=== PATIENT | male | born 1960 | race Caucasian/White ===

== ENCOUNTER 2018-02-19 10:02 | Inpatient (IN) ==
[~2018-02-19 10:02] MED LIST: Vancomycin 1,000 MG, Sodium Chloride IRRigation 1,000 ML IR ONE
[2018-02-19] MEDS ORDERED: CeFAZolin Syr 2,000MG/20 ML 2,000 MG/20 ML SYRINGE IVPB ONE (10:27)
[2018-02-19] MEDS ORDERED: Ringers Solution, Lactated 1,000 ML IVC SCH (10:30)
--- NOTE | 2018-02-19 10:32 | Anesthesia Evaluation PreOp ---
Date of Encounter: 02/19/18 Time of Encounter: 10:35 - Past History Planned Operation: Right iliac stent, poss femoral endarterectomy Alcohol Use: none Drug use: none Medications and Allergies Aspirin [Lo-Dose Aspirin EC] 81 mg PO DAILY 05/30/17 [History] Atorvastatin [Lipitor] 40 mg PO DAILY 05/30/17 [History] Cholecalciferol (Vitamin D3) [Vitamin D3] 1,000 unit PO DAILY 05/30/17 [History] Clopidogrel [Plavix] 75 mg PO DAILY #30 tablet 05/30/17 [Rx] Gabapentin [Neurontin] 300 mg PO BID 05/30/17 [History] Metoprolol XL (24 HR) Succ [Toprol Xl] 25 mg PO DAILY 06/15/17 [History] Cilostazol [Pletal] 100 mg PO BID 07/05/17 [History] HYDROcodone/Acet 5/325 mg [Warren 5-325 mg] 1 tab PO Q4H PRN #25 tablet 07/05/17 [Rx] 3 Allergy/AdvReac Type Severity Reaction Status Date / Time No Known Allergies Allergy Verified 07/05/17 10:33 - Meds/Allergy Pre-op Review Medications Reviewed: Yes Allergies Reviewed: Yes Beta Blockers on Current Med List: No Anesthesia Results - Labs Laboratory Tests 07/06/17 07/06/17 02/18/18 03:30 03:30 11:52 WBC 9.7 Hgb 12.4 L Hct 37.5 Plt Count 145 PT 10.9 INR 1.0 APTT 29.7 Sodium 139 Potassium 4.4 Chloride 103 Carbon Dioxide 27 BUN 9 Creatinine 0.90 Est GFR ( Amer) > 60 Est GFR (Non-Af Amer) > 60 BUN/Creatinine Ratio 10 Glucose 152 H Calculated Osmolality 290 Calcium 8.9 Labs from [facility] ([place], [place]) --18 A1c 5.5 WBC 3.7 Hgb 14.3 Hct 43.6 Plt 150 Na 143 K 5.1 Chloride 106 CO2 30 BUN 11 Cr 0.93 Glucose 102 - Imaging EKG: report reviewed, image reviewed (SINUS RHYTHM BASELINE ARTIFACT COMPLICATES ACCURATE INTERPRETATION) Additional studies: TTE: Impressions: LVEF 60%. Normal LV chamber size, wall thickness and function. Mild left ventricular diastolic dysfunction. Atypical septal motion consistent with bundle branch block. Normal right ventricular structure and function. No significant valvular dysfunction. Anesthesia Exam Last Vital Signs Temp 97.7 F 02/19/18 10:13 Pulse 75 02/19/18 10:13 Resp 18 02/19/18 10:13 BP 130/91 02/19/18 10:13 Pulse Ox 96 02/19/18 10:13 Weight: 61 kg NPO (# of Hours): > 8 hrs - HEENT Pupil (Motor): Pupils equal, EOMI Mallampati: II Teeth: Poor dentition Oral Opening: Greater than 3 - BUSINESS SUPPORT ADMINISTRATOR LOC: Oriented - Cardiac Rhythm: Regular Murmur: None - Pulmonary Breath Sounds: bilateral Clear Respiratory Effort: Symmetrical Anesthesia Assess/Plan ASA Score: 2 Modified [place] Scale for Level of Consciousness: Cooperative, oriented, and tranquil Anesthetic Plan: General Monitoring Plan: Standard Monitors, A-Line Recovery Plan: PACU
[2018-02-19] MEDS ORDERED: Albuterol 2.5 MG/3 ML NEBULIZER ONE (10:35)
[2018-02-19] MEDS ORDERED: Heparin 1,000 UNITS/500 mL 500 ML ONE (11:17)
--- NOTE | 2018-02-19 11:22 | History & Physical Report ---
Date of Encounter: 02/19/18 Time of Encounter: 11:15 24 Hour HP Update - Instructions Instructions: If the History and Physical is less than 30 days old and was completed prior to A.M. admission and or procedure and has NOT been updated on calendar day of procedure please complete this update prior to performing procedure. - Update Patient reports changes in Medical Condition: No Changes in examination, assessment, or condition: No Changes in Medication: No Preop tests/diagnostics Reviewed: Yes Surgery Remains Indicated: Yes Consent for Planned Operative Procedure(s) Verified: Yes - Pre-Operative Checklist Preoperative Checklist Indicated: Yes Prophylactic Antibiotic Ordered: Yes (vancomycin due to risk of MRSA) Home Medications Include Beta Daren: No Beta Daren Taken Today (Day of Surgery): No Beta Daren Taken Yesterday (Day Prior to Surgery): No Is VTE Prophylaxis Indicated?: Yes
[2018-02-19] MEDS ORDERED: Heparin 1,000 UNITS/500 mL 1,000 ML ONE (12:06)
[2018-02-19] MEDS ORDERED: Bupivacaine-MPF 0.25% 10 ML VIAL ONE (12:06)
[2018-02-19] MEDS ORDERED: *HR* FentaNYL (PF) 100 MCG/2 ML VIAL ONE (12:06)
[2018-02-19] MEDS ORDERED: *HR* Propofol 200 MG/20 ML VIAL IVP ONE (12:06)
[2018-02-19] MEDS ORDERED: Lidocaine -MPF 2% 2 ML VIAL ONE (12:06)
[2018-02-19] MEDS ORDERED: *HR* Succinylcholine 200 MG/10 ML VIAL IVP ONE (12:08)
[2018-02-19] MEDS ORDERED: Lidocaine -MPF 4% 5 ML AMPUL ONE (13:50)
[2018-02-19] MEDS ORDERED: Isovue-300 50 ML VIAL IVP ONE (14:01)
[2018-02-19] MEDS ORDERED: Dexamethasone 4 MG/ML VIAL ONE (14:22)
[2018-02-19] MEDS ORDERED: Ondansetron 4 MG/2 ML VIAL ONE (14:22)
[2018-02-19] MEDS ORDERED: *HR* OxyCODONE Immed Rel 5 MG TABLET PO PRN ×2 (14:31→16:33)
[2018-02-19] MEDS ORDERED: MORPHINE SUL Oral CONC 10 MG/0.5 ML ORAL.SYG SL PRN (14:31)
--- NOTE | 2018-02-19 15:59 | Operative Note ---
Date of procedure: 02/19/18 Pre-op diagnosis: Peripheral vascular disease with dsabling claudication Post-op diagnosis: same Procedure: 1. Introduction of catheter into aorta via right common femoral artery. 2. Abdominal Aortogram 3. Percutaneous placement of right common and external iliac artery 7 x 37mm stent. Complications: None Anesthesia: GETA Surgeon: Kang Siu Was there an property management assistant present: No Estimated blood loss (cc): 5 Specimen: None Disposition: PACU Procedure in Detail: Indications: The patient is a 57-year-old male with multiple medical comorbidities who has a history of peripheral vascular disease with disabling claudication.. She underwent a right common iliac artery stent and a femoral to femoral artery bypass. He presented to clinic with progressive bilateral lower stomach claudication. He was found have an right distal common and external iliac artery stenosis. Revascularization was recommended to reduce his symptoms. Operative procedure:The patient was identified in the preoperative area and taken to the operating room. After the induction of general endotracheal anesthesia he was prepped and draped in the normal sterile fashion. Under ultrasound guidance, the right common femoral artery was cannulated with a large bore needle. Care was taken to avoid injuring the femoral to femoral artery bypass. A Spotted wire was advanced though the needle into the aorta under fluoroscopic view. The needle was exchanged for a 6 armenian sheath and a guiding catheter was used to advance the wire into the suprarenal aorta. An angiogram was not performed to further evaluate the stenosis. After obtaining an angiogram for measurements, A 7 x 37 mm stent was advanced over the wire. The stent was positioned under fluoroscopic guidance. The stent was deployed and a completion angiogram revealed resolution of the stenotic segment. The sheath was removed over wires and direct pressure was then held to further aid in hemostasis. The patient was then extubated and taken to the recover room in stable condition.
--- NOTE | 2018-02-19 16:21 | Anesthesia Evaluation Post Op ---
Date of Encounter: 02/19/18 Time of Encounter: 16:20 - Vital Signs Vital Signs: Vital Signs/O2 Sat, Most Current Temp Pulse Resp BP Pulse Ox 97.4 F L 62 16 154/94 100 02/19/18 16:02 02/19/18 16:12 02/19/18 16:12 02/19/18 16:12 02/19/18 16:12 - Lungs Lungs: Clear Ascult./Percussion - Airway Airway: Non-obstructed - Cardiovascular Regular Rate - Mental Status Mental Status: Alert & Oriented, Answers Appropriately - Pain Pain Scale: 0 Pain Scale used: Numeric (1 - 10) - Nausea Vomiting Nausea Vomiting: Not Present - Hydration Hydration: Tolerates oral liquids - Discharge PostOp Status: Transfer Patient to floor Attestation: I have assessed this patient and find they meet discharge criteria.
[2018-02-19] MEDS ORDERED: Ondansetron 4 MG/2 ML VIAL IVP PRN (16:33)
[2018-02-19] MEDS ORDERED: Naloxone 0.4 MG/ML INJ IVP PRN (16:33)
[2018-02-19] MEDS ORDERED: *HR* HYDROcodone/Acet 5/325 mg TABLET PO PRN (16:33)
[2018-02-19] MEDS ORDERED: Acetaminophen 325 MG TABLET PO PRN (16:33)
[2018-02-19] MEDS ORDERED: OXYCODONE Oral CONC 10 MG/0.5 ML ORAL.SYG SL PRN ×2 (16:33)
[2018-02-19] MEDS ORDERED: *HR* Labetalol 20 MG/4 ML SYRINGE IVP PRN (16:33)
[2018-02-19] MEDS: Gabapentin 300 MG CAPSULE PO SCH (20:51)
[2018-02-19] MEDS: CeFAZolin Pre 2,000 MG/100 ML 2,000 MG/100 ML BAG IVPB SCH (20:51)
[2018-02-20] MEDS: CeFAZolin Pre 2,000 MG/100 ML 2,000 MG/100 ML BAG IVPB SCH (04:50)
[2018-02-20 05:06] LABS: Basophils % 0.2 %; Hematocrit 36.6 % (37.5-50.1); Hemoglobin 12.3 g/dL (12.9-16.9); Immature Granulocytes % 0.4 % (0-4); Lymphocytes # 0.8 K/mcL (0.6-4.6); Lymphocytes % 15.2 %; Mean Corpuscular HGB Conc 33.6 g/dL (31.6-35.5); Mean Corpuscular Hemoglobin 30.7 pg (28.0-33.3); Mean Corpuscular Volume 91.3 fL (83.0-100.0); Monocytes # 0.4 K/mcL (0.0-1.3); Monocytes % 6.9 %; Neutrophils # 3.9 K/mcL (1.6-8.9); Nucleated Red Blood Cells 0.4 /100 WBC (0); Platelet Count 129 K/mcL (140-400); Red Blood Count 4.01 M/mcL (4.19-5.50); Red Cell Distribution Width 13.7 % (11.5-14.5); Segmented Neutrophils % 77.3 %
[2018-02-20 05:24] LABS: BUN/Creatinine Ratio 13 (6-26); Blood Urea Nitrogen 12 mg/dL (6-20); Calcium 8.9 mg/dL (8.6-10.3); Carbon Dioxide 27 mEq/L (23-29); Chloride 104 mEq/L (98-107); Glucose 160 mg/dL (70-105); Osmolality,Calculated 287 (280-300); Potassium 4.3 mEq/L (3.5-5.1); Sodium 137 mEq/L (136-145); eGFR For African Americans > 60 (> 60); eGFR For Non-African Americans > 60 (> 60)
[2018-02-20] MEDS ORDERED: *HR* Heparin 5,000 UNIT/ML VIAL SQ SCH ×2 (06:00)
[2018-02-20 07:01] VITALS: BP 126/75
--- NOTE | 2018-02-20 07:24 | Discharge Summary ---
Date of Encounter: 02/20/18 Time of Encounter: 07:45 - Discharge Diagnosis (1) Atherosclerosis of [place] arteries of extremities with intermittent claudication, bilateral legs Priority: Primary Status: Chronic Comments: The patient is postoperative day #1 after a right common and external iliac artery stent placement. He reports his legs feel better. He has no hematoma. He will be discharged today in stable condition. (2) Essential hypertension Priority: Secondary Status: Chronic Comments: His counseled regarding atherosclerotic risk factor reduction. (3) Mixed hyperlipidemia Priority: Secondary Status: Chronic (4) Tobacco abuse Priority: Secondary Status: Acute - Hospital Course Hospital course: Mr. Mccartney is a 57 year old male with a history of hyperlipidemia and tobacco abuse. The patient has a history of peripheral vascular disease with disabling claudication is previously undergone a right common iliac artery stent as well as a femoral to femoral artery bypass. Patient presented with recurrent symptoms and was found have a right distal common iliac and external iliac artery stenosis. He underwent a right iliac stent on 02/19/2018. He tolerated the procedure well preserved a day #1 he reported improved symptoms. He was discharged without complications and in stable condition. Time spent discussing smoking cessation with patient: 3 to 10 minutes - Time Spent with Patient Total time spent providing and/or coordinating discharge services: - Discharge Medications Prescriptions: OxyCODONE/APAP 5/325 [Percocet 5/325 MG] 1 each PO Q6HR PRN 5 Days #20 tablet PRN Reason: Postoperative pain Home Medications: Aspirin [Lo-Dose Aspirin EC] 81 mg PO DAILY 05/30/17 [History] Cholecalciferol (Vitamin D3) [Vitamin D3] 1,000 unit PO DAILY 05/30/17 [History] Clopidogrel [Plavix] 75 mg PO DAILY #30 tablet 05/30/17 [Rx] Gabapentin [Neurontin] 300 mg PO BID 05/30/17 [History] Cyclobenzaprine HCl 10 mg PO TID PRN 02/19/18 [History] OxyCODONE/APAP 5/325 [Percocet 5/325 MG] 1 each PO Q6HR PRN 5 Days #20 tablet [Rx] Allergies/Adverse Reactions: 3 Allergy/AdvReac Type Severity Reaction Status Date / Time No Known Allergies Allergy Verified 02/19/18 10:47 Date of admission: 02/19/18 16:32 Primary care physician: Lizzette Cruz MD Procedure(s) Performed: Abdominal angiogram, right iliac stent. Discharging clinician: Kang Siu Anticipated date of discharge: 02/20/18 Exam Vital Signs, Last 4 Hours Temp Pulse Resp BP Pulse Ox 02/20/18 07:01 98.0 F 70 18 126/75 96 General: Present: Conversant, No Apparent Distress Cardiac: Present: Reg Rate and Rhythm Lungs: Present: Normal Breath Sounds Neuro: Present: Alert and responsive, No focal deficits noted Abdomen: Present: Soft Vascular: Present: Normal capillary refill, Surgical incisions (No hematoma), Other (Pedal pulses present bilaterally.). Absent: Cyanosis, Edema - Patient Status Disposition: Home, Self-Care Condition: Good Functional capacity at discharge: independent ambulation Overall status at discharge: patient is back to baseline - Discharge Instructions Instructions: Peripheral Vascular Stent Placement (DC), Peripheral Vascular Stent Placement (GEN), Peripheral Vascular Disorders (DC) Follow Up With: Lizzette Cruz MD [Primary Care Provider] - 02/28/18 2:00 pm Kang Siu MD [Partnered Physician] - 03/26/18 2:40 pm Additional Instructions: May remove the bandage and shower on 02/21/2018. Wash wound gently and pat to dry. Call Dr. Siu at [phone] with questions or concerns. - Diet and Activity Activity: increase activity as tolerated Diet: advance to your usual diet - VTE Documentation of Mechanical Device: Intermittent pneumatic compression device
[2018-02-20] MEDS: Gabapentin 300 MG CAPSULE PO SCH (08:26)
[2018-02-20] MEDS ORDERED: Cholecalciferol (D-3) 1,000 UNIT TABLET PO SCH (09:00)
[2018-02-20] MEDS ORDERED: Aspirin Enteric Coated 81 MG Tablet PO SCH (09:00)
== END 2018-02-20 10:10 | disposition home or self-care (01) | DRG 181 ==
LOC: SAMDAY 10:02 → 2NNU 16:32
PROVIDERS: ADMIT Surgery; ATTEND Surgery

== ENCOUNTER 2020-03-05 07:52 | Inpatient (IN) ==
[2020-03-05] MEDS ORDERED: *HR* FentaNYL (PF) 100 MCG/2 ML VIAL IVP ONE ×2 (08:11→08:18)
[2020-03-05 08:27] LABS: Mean Corpuscular HGB Conc 32.3 g/dL (31.6-35.5); Mean Corpuscular Hemoglobin 30.3 pg (28.0-33.3)
[2020-03-05 08:28] LABS: Basophils % 0.5 %; Eosinophils % 0.7 %; Hematocrit 48.9 % (37.5-50.1); Hemoglobin 15.8 g/dL (12.9-16.9); Immature Granulocytes % 0.2 % (0-4); Immature Platelets 10.6 % (1.1-6.1); Lymphocytes # 1.1 K/mcL (0.6-4.6); Lymphocytes % 25.7 %; Mean Corpuscular Volume 93.9 fL (83.0-100.0); Mean Platelet Volume 11.4 fL (9.4-12.4); Monocytes # 0.5 K/mcL (0.0-1.3); Monocytes % 10.8 %; Platelet Count 135 K/mcL (140-400); Red Blood Count 5.21 M/mcL (4.19-5.50); Red Cell Distribution Width 13.2 % (11.5-14.5); Segmented Neutrophils % 62.1 %; White Blood Count 4.4 K/mcL (4.3-11.1)
[2020-03-05] MEDS ORDERED: Isovue-370 500 ML BOTTLE IVP ONE ×2 (08:29→08:53)
[2020-03-05 08:30] LABS: Neutrophils # 2.7 K/mcL (1.6-8.9)
[2020-03-05 08:45] LABS: Alanine Aminotransferase 7 Units/L (7-52); Albumin 4.7 g/dL (3.5-5.7); Albumin/Globulin Ratio 1.8 (1.1-2.2); Alkaline Phosphatase 92 Units/L (34-104); Aspartate Amino Transferase 13 Units/L (13-39); BUN/Creatinine Ratio 15 (6-26); Bilirubin,Total 0.5 mg/dL (0.3-1.0); Blood Urea Nitrogen 14 mg/dL (6-20); Calcium 9.6 mg/dL (8.6-10.3); Carbon Dioxide 29 mEq/L (23-29); Chloride 104 mEq/L (98-107); Creatine Kinase 61 Units/L (30-223); Globulin 2.6 g/dL (2.4-3.5); Glucose 101 mg/dL (70-105); Osmolality,Calculated 289 (280-300); Potassium 4.5 mEq/L (3.5-5.1); Sodium 139 mEq/L (136-145); Total Protein 7.3 g/dL (6.4-8.9); eGFR For African Americans > 60 (> 60); eGFR For Non-African Americans > 60 (> 60)
[2020-03-05 08:47] LABS: Prothrombin Time 10.8 Seconds (9.4-12.1)
[2020-03-05 08:49] LABS: Activated Partial Thrombo Time 31.6 Seconds (26.0-36.0)
[2020-03-05] MEDS ORDERED: *HR* FentaNYL (PF) 100 MCG/2 ML VIAL ONE (11:21)
[2020-03-05] MEDS ORDERED: *HR* Propofol 200 MG/20 ML VIAL IVP ONE (11:21)
[2020-03-05] MEDS ORDERED: Lidocaine -MPF 2% 2 ML VIAL ONE (11:22)
[2020-03-05] MEDS ORDERED: *HR* Rocuronium Bromide 50 MG/5 ML VIAL ONE (11:22)
[2020-03-05] MEDS ORDERED: Lidocaine 1% 0 ML ONE (11:31)
[2020-03-05] MEDS ORDERED: Vancomycin 1,000 MG VIAL ONE (11:31)
[2020-03-05] MEDS ORDERED: Lidocaine 1% 20 ML MDV ONE (11:31)
[2020-03-05] MEDS ORDERED: Heparin 1,000 UNITS/500 mL 500 ML ONE (11:31)
[2020-03-05] MEDS ORDERED: *HR* HYDROmorphone PF 0.5 MG/0.5 ML SYRINGE IVP PRN (11:37)
[2020-03-05] MEDS ORDERED: Ondansetron 4 MG/2 ML VIAL IVP ONE (11:37)
[2020-03-05] MEDS ORDERED: Famotidine 20 MG/2 ML VIAL ONE (11:39)
[2020-03-05] MEDS ORDERED: Acetaminophen IV 1,000 MG/100 ML INFUS..BTL ONE (11:39)
[2020-03-05] MEDS ORDERED: Ondansetron 4 MG/2 ML VIAL ONE (11:56)
[2020-03-05] MEDS ORDERED: CeFAZolin Syr 2,000MG/20 ML 2,000 MG/20 ML SYRINGE IVPB ONE (11:59)
[2020-03-05] MEDS ORDERED: *HR* Midazolam HCl 2 MG/2 ML VIAL ONE ×2 (12:08→14:34)
[2020-03-05] MEDS ORDERED: Lidocaine HCL 4 ML Topical Solution (Laryng-O-Jet Kit Sterile Pak) TP ONE (12:09)
[2020-03-05] MEDS ORDERED: Calcium Gluconate 1,000 MG/10 ML VIAL ONE (12:27)
[2020-03-05] MEDS ORDERED: *HR* Heparin 5,000 UNIT/ML VIAL ONE ×2 (12:57→13:22)
[2020-03-05] MEDS ORDERED: Dexamethasone 4 MG/ML VIAL ONE (13:02)
[2020-03-05] MEDS ORDERED: EPHEDrine 50 MG/ML VIAL ONE (13:55)
[2020-03-05] MEDS ORDERED: *HR* Labetalol 20 MG/4 ML SYRINGE IVP ONE (14:46)
[2020-03-05] MEDS: *HR* Labetalol 20 MG/4 ML SYRINGE IVP PRN ×3 (14:58→15:09)
[2020-03-05] MEDS ORDERED: *HR* OxyCODONE Immed Rel 5 MG TABLET PO ONE (15:14)
[2020-03-05] MEDS ORDERED: Ringers Solution, Lactated 1,000 ML ONE (15:26)
[2020-03-05] MEDS ORDERED: *HR* Labetalol 20 MG/4 ML SYRINGE IVP PRN (15:48)
[2020-03-05] MEDS ORDERED: Naloxone 0.4 MG/ML INJ IVP PRN (15:48)
[2020-03-05] MEDS ORDERED: *HR* OxyCODONE Immed Rel 5 MG TABLET PO PRN ×2 (15:48)
[2020-03-05] MEDS ORDERED: Acetaminophen 325 MG TABLET PO PRN ×2 (15:48)
[2020-03-05] MEDS ORDERED: 0.9 % Sodium Chloride 1,000 ML IVC SCH (15:48)
[2020-03-05] MEDS ORDERED: *HR* HYDROcodone/Acet 5/325 mg TABLET PO PRN ×2 (15:48)
[2020-03-05 16:29] VITALS: BP 114/83
[2020-03-05] MEDS: *HR* Metoprolol 5 MG/5 ML VIAL IVP SCH ×2 (16:33→16:34)
[2020-03-05] MEDS ORDERED: CeFAZolin 2 GM/120 ML BAG IVPB SCH (20:00)
[2020-03-06] MEDS ORDERED: *HR* Heparin 5,000 UNIT/ML VIAL SQ SCH ×2 (06:00)
[2020-03-06] MEDS ORDERED: Aspirin Enteric Coated 81 MG Tablet PO SCH (09:00)
== END 2020-03-05 18:02 | disposition home or self-care (01) | DRG 169 ==
LOC: EMEROOARM 07:52 → 2NNU 12:07
PROVIDERS: ADMIT Surgery; ATTEND Surgery

== ENCOUNTER 2020-08-26 10:43 | Inpatient (IN) ==
[2020-08-26] MEDS ORDERED: Ondansetron 4 MG/2 ML VIAL IVP PRN ×2 (11:17→17:26)
[2020-08-26] MEDS ORDERED: *HR* HYDROmorphone PF 0.5 MG/0.5 ML SYRINGE IVP PRN (11:17)
[2020-08-26] MEDS ORDERED: *HR* OxyCODONE Immed Rel 5 MG TABLET PO PRN (11:17)
[2020-08-26] MEDS ORDERED: *HR* Propofol 200 MG/20 ML VIAL IVP ONE (11:20)
[2020-08-26] MEDS ORDERED: *HR* FentaNYL (PF) 100 MCG/2 ML VIAL ONE (11:20)
[2020-08-26] MEDS ORDERED: *HR* Rocuronium Bromide 50 MG/5 ML VIAL ONE (11:21)
[2020-08-26] MEDS ORDERED: Ondansetron 4 MG/2 ML VIAL ONE (11:21)
[2020-08-26] MEDS ORDERED: Lidocaine -MPF 2% 2 ML VIAL ONE (11:21)
[2020-08-26] MEDS ORDERED: Lidocaine HCL 4 ML Topical Solution (Laryng-O-Jet Kit Sterile Pak) TP ONE (11:21)
[2020-08-26] MEDS ORDERED: Dexamethasone 4 MG/ML VIAL ONE (11:21)
[2020-08-26] MEDS ORDERED: CeFAZolin Syr 2,000MG/20 ML 2,000 MG/20 ML SYRINGE IVPB ONE (11:24)
[2020-08-26] MEDS ORDERED: Ringers Solution, Lactated 1,000 ML IVC SCH (11:30)
[2020-08-26] MEDS ORDERED: Vancomycin 1,000 MG, Sodium Chloride IRRigation 1,000 ML IR ONE (12:10)
[2020-08-26] MEDS ORDERED: Heparin 1,000 UNITS/500 mL 500 ML ONE ×2 (12:19)
[2020-08-26] MEDS ORDERED: Albumin Human 5% 25.0 GM/500 ML IV.SOLN ONE (13:23)
[2020-08-26] MEDS ORDERED: *HR* Phenylephrine 10 MG/ML VIAL ONE (13:36)
[2020-08-26] MEDS ORDERED: *HR* HYDROMORPHONE 2 MG/ML VIAL ONE (13:59)
[2020-08-26] MEDS ORDERED: 0.9 % Sodium Chloride 1,000 ML IVC SCH (17:26)
[2020-08-26] MEDS ORDERED: Acetaminophen 325 MG TABLET PO PRN (17:26)
[2020-08-26] MEDS ORDERED: Naloxone 0.4 MG/ML INJ IVP PRN (17:26)
[2020-08-26] MEDS ORDERED: *HR* Labetalol 20 MG/4 ML SYRINGE IVP PRN (17:26)
[2020-08-26] MEDS: *HR* Metoprolol 5 MG/5 ML VIAL IVP SCH (17:52)
[2020-08-26] MEDS: *HR* OxyCODONE Immed Rel 5 MG TABLET PO PRN (17:57)
[2020-08-26] MEDS: CeFAZolin 2 GM/120 ML BAG IVPB SCH (19:48)
[2020-08-27] MEDS: *HR* Metoprolol 5 MG/5 ML VIAL IVP SCH ×3 (00:07→12:39)
[2020-08-27] MEDS: *HR* OxyCODONE Immed Rel 5 MG TABLET PO PRN ×2 (00:22→09:57)
[2020-08-27 05:00] LABS: Immature Granulocytes % 0.2 % (0-4); Red Cell Distribution Width 13.5 % (11.5-14.5)
[2020-08-27 05:02] LABS: Hematocrit 38.8 % (37.5-50.1); Hemoglobin 12.3 g/dL (12.9-16.9); Immature Platelets 11.3 % (1.1-6.1); Lymphocytes # 0.9 K/mcL (0.6-4.6); Lymphocytes % 11.5 %; Mean Corpuscular HGB Conc 31.7 g/dL (31.6-35.5); Mean Corpuscular Hemoglobin 31.1 pg (28.0-33.3); Mean Corpuscular Volume 98.2 fL (83.0-100.0); Mean Platelet Volume 11.9 fL (9.4-12.4); Monocytes # 0.6 K/mcL (0.0-1.3); Monocytes % 7.1 %; Platelet Count 107 K/mcL (140-400); Red Blood Count 3.95 M/mcL (4.19-5.50); Segmented Neutrophils % 81.2 %; White Blood Count 8.2 K/mcL (4.3-11.1)
[2020-08-27 05:05] LABS: Neutrophils # 6.7 K/mcL (1.6-8.9)
[2020-08-27 05:16] LABS: BUN/Creatinine Ratio 10 (6-26); Blood Urea Nitrogen 8 mg/dL (6-20); Calcium 8.4 mg/dL (8.6-10.3); Carbon Dioxide 26 mEq/L (23-29); Chloride 106 mEq/L (98-107); Glucose 100 mg/dL (70-105); Osmolality,Calculated 280 (280-300); Potassium 4.1 mEq/L (3.5-5.1); Sodium 136 mEq/L (136-145); eGFR For African Americans > 60 (> 60); eGFR For Non-African Americans > 60 (> 60)
[2020-08-27] MEDS: *HR* HYDROcodone/Acet 5/325 mg TABLET PO PRN ×2 (05:25→13:13)
[2020-08-27] MEDS: CeFAZolin 2 GM/120 ML BAG IVPB SCH (05:29)
[2020-08-27] MEDS ORDERED: *HR* Heparin 5,000 UNIT/ML VIAL SQ SCH ×2 (06:00)
[2020-08-27] MEDS ORDERED: Aspirin Enteric Coated 81 MG Tablet PO SCH (09:00)
[2020-08-27] MEDS ORDERED: lisinopriL 20 MG TABLET PO SCH (09:00)
[2020-08-27 11:19] VITALS: BP 152/73
== END 2020-08-27 13:27 | disposition home or self-care (01) | DRG 181 ==
LOC: SAMDAY 10:43 → 2NNU 12:31
PROVIDERS: ADMIT Surgery; ATTEND Surgery